=== PATIENT | male | born 1965 | race Caucasian/White ===

== ENCOUNTER 2023-07-19 11:08 | Day surgery (SDC) | payer BC ==
[~2023-07-19] VITALS: Ht 177.8 cm; Wt 85.4 kg
[~2023-07-19 11:08] MED LIST: ATOR1TAB19 PO; CYCLOPENTOLATE 1% OPHTH SOLN 2ML BTL OD SCH; GLIP10TA PO; JANU50TA8 PO; LOSA50TA28 PO; OFLOXACIN 0.3 % (OCUFLOX) OPTH SOL 5ML OD ONE; PHENYLEPHRINE 10% OPHTH SOL 5ML OD PRN; PHENYLEPHRINE 2.5% OPHTH SOL 2ML OD SCH; TOBRADEX OPHTH OINT 3.5 GM As Ordered ONE; TROPICAMIDE 1% OPHTH SOLN 15ML OD SCH
[2023-07-19] MEDS ORDERED: fentaNYL 100 MCG/2 ML INJECTION As Ordered ONE (11:20)
[2023-07-19] MEDS ORDERED: MIDAZOLAM INJ 2MG/2ML VIAL As Ordered ONE (11:20)
[2023-07-19] MEDS ORDERED: DEXTROSE 50% 50ML SYRINGE IV PRN (11:45)
[2023-07-19] MEDS ORDERED: INSULIN LISPRO (NovoLOG) PER UNIT SC PRN (11:45)
[2023-07-19] MEDS ORDERED: GLUCAGON INJ 1MG VIAL SC PRN (11:45)
[2023-07-19] MEDS ORDERED: GLUCOSE 4GM CHEW TABLET PO PRN (11:45)
[2023-07-19] MEDS: LIDOCAINE 3.5 % 1ML OPHTH TOPICAL GEL OU ONE (11:48)
[2023-07-19] MEDS: mitoMYcin 0.2 MG/VIAL KIT FOR OPHTHALMIC USE As Ordered ONE (12:52)
[2023-07-19] MEDS: LIDOCAINE 1% SDV 5ML VIAL As Ordered ONE (12:52)
[2023-07-19 12:58] VITALS: BP 129/77; TEMP 98; O2SAT 96
== END 2023-07-19 13:20 | disposition home or self-care (01) ==
LOC: M SDC 11:08
PROVIDERS: ATTEND Ophthalmology
DX: H40.9 Unspecified glaucoma (principal); E11.9 Type 2 diabetes mellitus without complications; G47.30 Sleep apnea, unspecified; Z88.0 Allergy status to penicillin; Z79.899 Other long term (current) drug therapy; Z79.84 Long term (current) use of oral hypoglycemic drugs; F17.290 Nicotine dependence, other tobacco product, uncomplicated
CPT/HCPCS: 66020; 66183; 93005; C1783; J2250; J3010; J7315

== ENCOUNTER 2023-07-26 10:31 | Day surgery (SDC) | payer BC ==
[~2023-07-26] VITALS: Ht 177.8 cm; Wt 85.3 kg
[~2023-07-26 10:31] MED LIST changes: -CYCLOPENTOLATE 1% OPHTH SOLN 2ML BTL OD SCH; +LIDOCAINE 3.5 % 1ML OPHTH TOPICAL GEL OU ONE; -OFLOXACIN 0.3 % (OCUFLOX) OPTH SOL 5ML OD ONE; -PHENYLEPHRINE 10% OPHTH SOL 5ML OD PRN; -PHENYLEPHRINE 2.5% OPHTH SOL 2ML OD SCH; -TOBRADEX OPHTH OINT 3.5 GM As Ordered ONE; -TROPICAMIDE 1% OPHTH SOLN 15ML OD SCH
[2023-07-26] MEDS ORDERED: fentaNYL 100 MCG/2 ML INJECTION As Ordered ONE (11:49)
[2023-07-26] MEDS ORDERED: MIDAZOLAM INJ 2MG/2ML VIAL As Ordered ONE (11:49)
[2023-07-26] MEDS: LIDOCAINE 1% SDV 5ML VIAL As Ordered ONE (12:08)
[2023-07-26] MEDS: mitoMYcin 0.2 MG/VIAL KIT FOR OPHTHALMIC USE As Ordered ONE (12:08)
[2023-07-26 12:16] VITALS: BP 126/77; TEMP 97.1; O2SAT 99
== END 2023-07-26 12:30 | disposition home or self-care (01) ==
LOC: M SDC 10:31
PROVIDERS: ATTEND Ophthalmology
DX: H40.1121 Primary open-angle glaucoma, left eye, mild stage (principal); E11.9 Type 2 diabetes mellitus without complications; G47.30 Sleep apnea, unspecified; Z88.0 Allergy status to penicillin; Z79.899 Other long term (current) drug therapy
CPT/HCPCS: 66020; 66183; C1783; J2250; J3010; J7315